=== PATIENT | female | born 1945 | race Caucasian/White ===

== ENCOUNTER 2025-05-02 17:14 | Inpatient (IN) | payer MEDICARE, OTHER ==
[2025-05-02] MEDS ORDERED: NOREPINEPHRINE 8 MG/250 ML-D5W 250 ML ONE (17:17)
[2025-05-02] MEDS ORDERED: Vasopressin In 0.9 % NaCl 100 ML ONE (18:13)
[2025-05-02] MEDS ORDERED: Magnesium 2 GM/50 ML BAG (IN WATER) ONE (18:13)
[2025-05-02] MEDS ORDERED: CALCIUM GLUC 1 GM/NS 50 ML IV Bag ONE (18:13)
[2025-05-02 19:40] LABS: Hematocrit 38.5 % (36.0-47.0); Hemoglobin 12.4 g/dL (12.0-16.0); Mean Corpuscular Hemoglobin 29.0 pg (27.0-31.0); Mean Corpuscular Volume 90.0 fL (78.0-98.0); Platelet Count 306 10x3/uL (130-400); Red Blood Cell (RBC) Count 4.28 mill/uL (4.20-5.40); White Blood Cell (WBC) Count 16.82 10x3/uL (4.8-10.8)
[2025-05-02 19:59] LABS: Anisocytosis SLIGHT = 6-15 cells HPF (0-5); Platelet Adequacy Comment Platelets Normal; Poikilocytosis SLIGHT = 6-15 cells HPF (0-5); Polychromasia SLIGHT = 2-3 cells HPF (0-2)
[2025-05-02 20:03] LABS: Troponin I 0.484 ng/mL (< 0.028)
[2025-05-02] MEDS ORDERED: Acetaminophen 325 MG TAB PO PRN (21:01)
[2025-05-02 22:10] VITALS: BMI 16.7
[2025-05-02] MEDS: Hydrocortisone Sod Succ/PF 100 mg/2 ml Vial IVP SCH (22:47)
[2025-05-02 23:21] LABS: Bacteria/HPF 1+ HPF (None Seen); Glucose, Urine (Dipstick) Normal (Negative); Leukocyte 250 Leu/uL (Negative); Protein, Urine (Dipstick) 70 mg/dL (Neg-Trace); RBC/HPF Greater than 50 HPF (0-3); Specific Gravity, Urine 1.025 (1.002-1.036); WBC/HPF Greater than 50 HPF (0-3)
[2025-05-02 23:56] LABS: ALT (SGPT) 34 U/L (Less than 34); AST (SGOT) 167 U/L (11-34); Albumin 1.2 g/dL (3.1-4.5); Alkaline Phosphatase 170 U/L (40-110); Anion Gap 18 mmol/L (10-20); BUN (Urea Nitrogen) 34 mg/dL (9.8-20.1); Bilirubin, Total 0.2 mg/dL (0.3-1.2); Calc. Creatinine Clearance 10 mL/min (70-130); Calcium 6.5 mg/dL (7.8-10.44); Carbon Dioxide 13 mmol/L (23-31); Chloride 119 mmol/L (98-107); Globulin 3.3 g/dL (2.4-3.5); Glucose 78 mg/dL (83-110); Lipase 4 U/L (8-78); Magnesium 3.0 mg/dL (1.6-2.6); Potassium 4.5 mmol/L (3.5-5.1); Sodium 145 mmol/L (136-145)
[2025-05-03 00:21] LABS: Troponin I 0.645 ng/mL (< 0.028)
[2025-05-03] MEDS: Ondansetron PF 4 MG/2 ML Vial IVP PRN (00:36)
[2025-05-03] MEDS ORDERED: Glucagon 1 MG/ML KIT IM PRN (04:13)
[2025-05-03] MEDS ORDERED: Dextrose 50% Abboject 50 ML SYRINGE SLOW IVP PRN (04:13)
[2025-05-03 04:38] LABS: Hematocrit 37.4 % (36.0-47.0); Hemoglobin 12.2 g/dL (12.0-16.0); Mean Corpuscular Hemoglobin 29.3 pg (27.0-31.0); Mean Corpuscular Volume 89.9 fL (78.0-98.0); Platelet Count 262 10x3/uL (130-400); Red Blood Cell (RBC) Count 4.16 mill/uL (4.20-5.40); White Blood Cell (WBC) Count 19.64 10x3/uL (4.8-10.8)
[2025-05-03 04:47] LABS: ALT (SGPT) 36 U/L (Less than 34); AST (SGOT) 181 U/L (11-34); Albumin 1.2 g/dL (3.1-4.5); Alkaline Phosphatase 164 U/L (40-110); Anion Gap 18 mmol/L (10-20); BUN (Urea Nitrogen) 40 mg/dL (9.8-20.1); Bilirubin, Total 0.2 mg/dL (0.3-1.2); Calc. Creatinine Clearance 9 mL/min (70-130); Calcium 6.5 mg/dL (7.8-10.44); Carbon Dioxide 12 mmol/L (23-31); Chloride 119 mmol/L (98-107); Globulin 3.2 g/dL (2.4-3.5); Glucose 71 mg/dL (83-110); Potassium 4.8 mmol/L (3.5-5.1); Sodium 144 mmol/L (136-145)
[2025-05-03 05:24] LABS: Anisocytosis SLIGHT = 6-15 cells HPF (0-5); Nucleated RBC (Manual Ct) 1 % (0); Platelet Adequacy Comment Platelets Normal; Poikilocytosis SLIGHT = 6-15 cells HPF (0-5); Reflex for Review?? YES
[2025-05-03] MEDS: Vasopressin In 0.9 % NaCl 100 ML IV SCH (06:30)
[2025-05-03] MEDS: Albumin 25% 25 GM (100 mL) BOT IVPB SCH (06:30)
[2025-05-03] MEDS: Hydrocortisone Sod Succ/PF 100 mg/2 ml Vial IVP SCH (06:30)
[2025-05-03 10:02] VITALS: BMI 16.7
[2025-05-03] MEDS: Enoxaparin 60 MG (0.6 mL) SYRINGE SC SCH (10:17)
[2025-05-03] MEDS: Famotidine/PF 20 mg/2ml Vial SLOW IVP SCH (10:18)
[2025-05-03 12:56] LABS: Campy jejuni + coli by PCR Negative (Negative); STEC Shiga Toxin 1+2 Negative (Negative); Salmonella spp. by PCR Negative (Negative); Shigella spp + EIEC by PCR Negative (Negative)
[2025-05-03] MEDS: Vancomycin HCl 125 MG/5 ML (BATCHED) UDCUP PO SCH (13:07)
[2025-05-03] MEDS ORDERED: Metoprolol Tartrate 5 MG (5 mL) VIAL IVP SCH (15:15)
[2025-05-03 16:31] LABS: ALT (SGPT) 30 U/L (Less than 34); AST (SGOT) 156 U/L (11-34); Albumin 2.2 g/dL (3.1-4.5); Alkaline Phosphatase 131 U/L (40-110); Anion Gap 23 mmol/L (10-20); BUN (Urea Nitrogen) 40 mg/dL (9.8-20.1); Bilirubin, Total 0.5 mg/dL (0.3-1.2); Calc. Creatinine Clearance 9 mL/min (70-130); Calcium 6.1 mg/dL (7.8-10.44); Carbon Dioxide 14 mmol/L (23-31); Chloride 114 mmol/L (98-107); Globulin 2.1 g/dL (2.4-3.5); Glucose 214 mg/dL (83-110); Potassium 5.0 mmol/L (3.5-5.1); Sodium 146 mmol/L (136-145)
[2025-05-03] MEDS: Phenylephrine 40 MG/NS 250 ML 250 ML IVPB SCH (18:30)
[2025-05-04 04:21] LABS: ALT (SGPT) 38 U/L (Less than 34); AST (SGOT) 201 U/L (11-34); Albumin 2.2 g/dL (3.1-4.5); Alkaline Phosphatase 204 U/L (40-110); Anion Gap 17 mmol/L (10-20); BUN (Urea Nitrogen) 46 mg/dL (9.8-20.1); Bilirubin, Total 0.5 mg/dL (0.3-1.2); Calc. Creatinine Clearance 9 mL/min (70-130); Calcium 6.4 mg/dL (7.8-10.44); Carbon Dioxide 22 mmol/L (23-31); Chloride 108 mmol/L (98-107); Globulin 2.3 g/dL (2.4-3.5); Glucose 266 mg/dL (83-110); Potassium 5.3 mmol/L (3.5-5.1); Sodium 142 mmol/L (136-145)
[2025-05-04 04:32] LABS: Hematocrit 33.2 % (36.0-47.0); Hemoglobin 10.8 g/dL (12.0-16.0); Mean Corpuscular Hemoglobin 28.9 pg (27.0-31.0); Mean Corpuscular Volume 88.8 fL (78.0-98.0); Platelet Count 180 10x3/uL (130-400); Red Blood Cell (RBC) Count 3.74 mill/uL (4.20-5.40); White Blood Cell (WBC) Count 34.22 10x3/uL (4.8-10.8)
[2025-05-04 05:33] LABS: Burr Cells SLIGHT = 2-5 cells HPF (0-1); Nucleated RBC (Manual Ct) 2 % (0); Platelet Adequacy Comment Platelets Normal; Polychromasia SLIGHT = 2-3 cells HPF (0-2); Smudge Cells 3.5 %
[2025-05-04] MEDS: CALCIUM GLUC 1 GM/NS 50 ML 1 GM in Premix 1 BAG IVPB SCH (05:54)
[2025-05-04] MEDS: Furosemide 40 MG (4 mL) VIAL SLOW IVP SCH (09:58)
[2025-05-04 13:23] LABS: Hematocrit 33.0 % (36.0-47.0); Hemoglobin 10.9 g/dL (12.0-16.0); Mean Corpuscular Hemoglobin 29.3 pg (27.0-31.0); Mean Corpuscular Volume 88.7 fL (78.0-98.0); Platelet Count 140 10x3/uL (130-400); Red Blood Cell (RBC) Count 3.72 mill/uL (4.20-5.40); White Blood Cell (WBC) Count 38.97 10x3/uL (4.8-10.8)
[2025-05-04 13:43] LABS: Anion Gap 18 mmol/L (10-20); BUN (Urea Nitrogen) 44 mg/dL (9.8-20.1); Calc. Creatinine Clearance 11 mL/min (70-130); Calcium 6.7 mg/dL (7.8-10.44); Carbon Dioxide 15 mmol/L (23-31); Chloride 113 mmol/L (98-107); Glucose 180 mg/dL (83-110); Potassium 4.6 mmol/L (3.5-5.1); Sodium 141 mmol/L (136-145)
[2025-05-04 13:47] LABS: Anisocytosis MODERATE=16-30 cells HPF (0-5); Burr Cells MODERATE= 6-15 cells HPF (0-1); Macrocytosis SLIGHT = 6-15 cells HPF (0-5); Nucleated RBC (Manual Ct) 6 % (0); Ovalocytes MODERATE= 6-15 cells HPF (0-1); Platelet Adequacy Comment Platelets Normal; Poikilocytosis MARKED = >30 cells HPF (0-5); Polychromasia SLIGHT = 2-3 cells HPF (0-2); Schistocytes SLIGHT = 2-5 cells HPF (0-1); Toxic Granulation MODERATE
[2025-05-04] MEDS: NOREPINEPHRINE 8 MG/250 ML-D5W 250 ML IVPB SCH (14:39)
[2025-05-04] MEDS: Vancomycin HCl 125 MG/5 ML (BATCHED) UDCUP PO SCH (19:43)
[2025-05-04 20:37] VITALS: TEMP 96
== END 2025-05-04 19:45 | disposition expired | DRG 871 ==
LOC: ERS 17:14 → CCU 20:33
PROVIDERS: ADMIT Internal Medicine; ATTEND Internal Medicine
PROC: 3E033XZ Introduction of Vasopressor into Peripheral Vein, Percutaneous Approach (ICD-10-PCS; principal; 2025-05-02)
PROC: 3E043XZ Introduction of Vasopressor into Central Vein, Percutaneous Approach (ICD-10-PCS; 2025-05-02)
PROC: 3E03329 Introduction of Other Anti-infective into Peripheral Vein, Percutaneous Approach (ICD-10-PCS; 2025-05-02)
PROC: 3E04329 Introduction of Other Anti-infective into Central Vein, Percutaneous Approach (ICD-10-PCS; 2025-05-02)
PROC: 30233J1 Transfusion of Nonautologous Serum Albumin into Peripheral Vein, Percutaneous Approach (ICD-10-PCS; 2025-05-03)
PROC: 05HY33Z Insertion of Infusion Device into Upper Vein, Percutaneous Approach (ICD-10-PCS; 2025-05-03)
DX: A41.89 Other specified sepsis (principal); G93.41 Metabolic encephalopathy; L89.153 Pressure ulcer of sacral region, stage 3; J18.9 Pneumonia, unspecified organism; J69.0 Pneumonitis due to inhalation of food and vomit; R65.21 Severe sepsis with septic shock; N17.0 Acute kidney failure with tubular necrosis; E87.20 Acidosis, unspecified; A04.72 Enterocolitis due to Clostridium difficile, not specified as recurrent; I24.89 Other forms of acute ischemic heart disease; N39.0 Urinary tract infection, site not specified; Z68.1 Body mass index [BMI] 19.9 or less, adult; N17.9 Acute kidney failure, unspecified; E44.0 Moderate protein-calorie malnutrition; Z66 Do not resuscitate; Z51.5 Encounter for palliative care; I25.10 Atherosclerotic heart disease of native coronary artery without angina pectoris; E11.9 Type 2 diabetes mellitus without complications; L89.151 Pressure ulcer of sacral region, stage 1; I50.9 Heart failure, unspecified; E87.5 Hyperkalemia; R54 Age-related physical debility; R10.11 Right upper quadrant pain; I48.91 Unspecified atrial fibrillation; Z95.818 Presence of other cardiac implants and grafts; Z88.8 Allergy status to other drugs, medicaments and biological substances; Z88.2 Allergy status to sulfonamides; Z79.899 Other long term (current) drug therapy; Z79.02 Long term (current) use of antithrombotics/antiplatelets; Z79.890 Hormone replacement therapy; Z79.01 Long term (current) use of anticoagulants; Z98.890 Other specified postprocedural states; Z90.49 Acquired absence of other specified parts of digestive tract; Z90.710 Acquired absence of both cervix and uterus; Z98.84 Bariatric surgery status; Z95.1 Presence of aortocoronary bypass graft; Z88.6 Allergy status to analgesic agent; I25.2 Old myocardial infarction; Z78.1 Physical restraint status
CPT/HCPCS: 36415; 36416; 71045; 74018; 80053; 81003; 81015; 83605; 83690; 83735; 83880; 84100; 84484; 85025; 85060; 87040; 87086; 87324; 87449; 87505; 93005; 93010; J0613; J1308; J1650; J1720; J1815; J1940; J2270; J2405; J2543; J3475; J7030; J7070; J7120; P9047